=== PATIENT | male | born 1975 | race Caucasian/White ===

== ENCOUNTER 2024-08-30 16:05 | Emergency (ER) | payer OTHER, SELFPAY ==
--- NOTE | ~2024-08-30 | XR_ITS ---
XR hand RT min 3V Ordering provider: Srini Silva MD History: . hand injury . Comparison: None. FINDINGS: BONES: No acute fracture or dislocation. Healing fracture in the midshaft of the fifth metacarpal bon e. JOINT SPACES: Slight Narrowing of the proximal SOFT TISSUES: Normal. IMPRESSION: Healing fracture in the midshaft of the fifth metacarpal bone. Overlying soft tissue swelling is note d in the same area. Reviewed, dictated and finalized at location A. IMPRESSION: Healing fracture in the midshaft of the fifth metacarpal bone. Overlying soft t issue swelling is noted in the same area.
--- NOTE | ~2024-08-30 | XR_ITS ---
XR abdomen obstructive series Ordering provider: Srini Silva MD History: . Constipation . Comparison: None. FINDINGS: BOWEL: Nonobstructive bowel gas pattern. ORGANOMEGALY: None. SIGNIFICANT PATHOLOGIC CALCIFICATIONS: None. OTHER: No free air is seen under the diaphragm. IMPRESSION: NO ACUTE ABDOMINAL FINDINGS. Reviewed, dictated and finalized at location A.
[2024-08-30 16:08] VITALS: BP 154/83; PULSE 92; RESP 18; TEMP 36.6; O2SAT 100
--- OUTSIDE RECORDS SUMMARY | 2024-08-30 16:09 | XMS_ITS | Clinical Summary ---
Author Organization [facility] Address [address] [place] [address] Care Team Providers Care Client Director Name Role Phone Gigi Angel MD Primary Care Provider [phone] Allergies No known active allergies Medications insulin glargine (LANTUS) 100 unit/mL (3 mL) pen for injection Inject 60 Units under the skin every 12 (twelve) hours Inject 60 units with breakfast and at bedtime 30 mL 1 3 Active pen needle, diabetic 32 gauge x 5/32 needle Use as directed twice a day 100 each 3 Active insulin lispro (HumaLOG, ADMELOG) 100 unit/mL pen for injection Inject 25 Units under the skin 3 (three) times a day with meals 30 mL 1 3 Active pen needle, diabetic 32 gauge x 5/32 needle Use as directed 3 times a day. 100 each 3 Active dulaglutide (Trulicity) 0.75 mg/0.5 mL pen injector Inject 0.5 mL (0.75 mg total) under the skin once a week 2 mL 3 Active glucagon (Baqsimi) 3 mg/actuation spray,non-aeros ol One spray into one nostril once as directed by provider for low blood sugar. 1 each 3 Active blood-glucose meter kit Use as directed. 1 kit 3 Active lancets misc Use as directed up to 4 times a day. 100 each 1 3 Active OneTouch Verio test strips strip Use as directed three times a day. 100 each 1 3 Active lurasidone (LATUDA) 40 mg tablet Take 1 tablet (40 mg total) by mouth daily with dinner 30 tablet 3 Active polyethylene glycol (MIRALAX) 17 gram/dose bulk powderIndicatio ns:constipation Take 17 g by mouth daily 510 g 3 Active senna-docusate (PERICOLACE) 8.6-50 mg Take 1 tablet by mouth 2 (two) times a day 60 tablet 3 Active Active Problems Problem Noted Date Diagnosed Date Constipation 12/11/2022 Hypokalemia 12/11/2022 Uncontrolled type 2 DM with hyperosmolar nonketotic hyperglycemia 12/07/2022 Abnormal finding on GI tract imaging 12/06/2022 Abdominal pain 08/09/2009 Surgical History Surgery Date Site/Laterality Comments CT CHOLECYSTECTOMY Cholecystectomy - (Added by TW Conv) Social History Tobacco Use Types Packs/Day Years Used Date Smoking Tobacco: Former Cigarettes 0.5 35 0 12/01/1987 - 11/30/2022 Smokeless Tobacco: Never Tobacco Cessation:Counseling Given: Not Answered Social Connection and Isolation Panel [NHANES] A nswer Date Recorded In a typical week, how many times do you talk on the phone with family, friends, or neighbors? Three times a week 12/07/2022 How often do you get togethe r with friends or relatives? Three times a week 12/07/2022 How often do you attend chur ch or yazdanism services? Never 12/07/2022 Do you belong to any clubs o r organizations such as buddhism groups, unions, fraternal or athletic groups, or school groups? No 12/07/2022 How often do you attend meet ings of the clubs or organizations you belong to? Never 12/07/2022 Are you , , di vorced, , never , or living with a partner? Never 12/07/2022 Overall Financial Resource Strain (CARDIA) Answe r Date Recorded How hard is it for you to pa y for the very basics like food, housing, medical care, and heating? Somewhat hard 12/07/2022 Hunger Vital Sign Answer Date Recorded Within the past 12 months, y ou worried that your food would run out before you got the money to buy more. Sometimes true Within the past 12 months, t he food you bought just didn't last and you didn't have money to get more. Sometimes true PRAPARE - Transportation Answer Date Re corded In the past 12 months, has l ack of transportation kept you from medical appointments or from getting medications? Yes 11/20 In the past 12 months, has l ack of transportation kept you from meetings, work, or from getting things needed for daily living? Yes 12/07/2022 Personal Safety Answer Date Recorded Have you ever been in or are you currently in a harmful physical or emotional relationship or is someone making you feel afraid or unsafe? 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 Gender Identity Not on file Sexual Orientation Not on file Obstetrics History Last Filed Vital Signs Vital Sign Reading Time Taken Comments Blood Pressure 123/83 12/11/2022 7:15 AM CDT Pulse 77 12/11/2022 7:15 AM CDT Temperature 36.9 C (98.4 F) 12/11/2022 7:15 AM CDT Respiratory Rate 18 12/11/2022 7:15 AM CDT Oxygen Saturation 96% 12/11/2022 7:15 AM CDT Inhaled Oxygen Concentration - - Weight 136.1 kg (300 lb 1.6 oz) 12/11/2022 6:00 AM CDT Height 172.7 cm (5' 8 ) 12/07/2022 6:25 AM CDT Body Mass Index 45.63 12/07/2022 6:25 AM CDT Plan of Treatment Health Maintenance Due Date Last Done Comments Albumin Creatinine Ratio, Urine 1975 Depression Screening 1975 Hepatitis C Screening 1975 Dilated Eye Exam 1975 Foot Exam 1975 Lipid Panel 1975 DTaP/Tdap/Td Vaccine (1 - Tdap) 1986 Hepatitis B Screening 1993 Regular Well Visit/Exam 18-64 1993 Pneumococcal vaccine <65 (1 of 2 - PCV) 1994 Hemoglobin A1C 06/09/2023 12/07/2022 eGFR 12/12/2023 12/11/2022, 11/21, 12/09/2022, Additional history exists Influenza Vaccine (#1) 2023 Colon Cancer Screening-Colonoscopy 12/09/20322022 Procedures Procedure Name Priority Date/Time Associated Diagnosis Comments EGFR Routine 12/11/2022 2:48 AM CDT COLONOSCOPY 12/09/2022 12:44 PM CDT HEMOGLOBIN A1C STAT 12/07/2022 1:05 AM CDT from Last 3 Months or Most Recently Relevant to Health Maintenance Results * eGFR (12/11/2022 2:48 AM CDT) eGFR 127 mL/min/1. 73 m2 IMTIAZ DIAZ Comment: Interpretive Data Reference Interval Normal >/= 90 mL/min/1.73m2 Mildly decreased* 60 - 89 mL/min/1.73m2 Mildly to moderately decreased 45 - 59 mL/min/1.73m2 Moderately to severely decreased 30 - 44 mL/min/1.73m2 Severely decreased 15 - 29 mL/min/1.73m2 Kidney Failure < 15 mL/min/1.73m2 *Relative to young adult level Estimated glomerular filtration rate is determined by the 2020 CKD-EPI equation recommended by the National Kidney Foundation (A Unifying Approach to GFR Estimation: Recommendations of the NKF-ASK Task Force on Reassessing the Inclusion of Race in Diagnosing Kidney Disease, JASN 2020). The CKD-EPI equation should not be used for patients with unstable renal function and has not been validated in children and those over 70. Current interpretive data was last reviewed 2021. Testing performed by: [facility], [address] [place] [address]., [id number] Blood 12/11/2022 2:48 AM CDT 12/11/2022 4:14 AM CDT us Mariangel Thompson MD LAB BLOOD ORDERABLES Final Res ult IMTIAZ DIAZ [address] [facility] Department [place] [address] [phone] * COLONOSCOPY (12/09/2022 12:44 PM CDT) Anatomical Region Laterality Modality Other Narrative Procedure Note Roger Flores MD - 12/09/2022 12:44 PM CDT [facility] GI ENDOSCOPY Patient Name: Sharifa Carrillo Procedure Date: 12/09/2022 12:44 PM Date of : 1975 Admit Type: Inpatient Age: 47 Gender: Male Attending MD: Roger Rodriguez M.D. Room: [facility] ENDOSCOPY ROOM 01 Note Status: Finalized Procedure: Colonoscopy Indications: Rectal bleeding, Abnormal CT of the GI tract -rectal wall thickening Referring MD: Providers: Roger Flores M.D. Medicines: Monitored Anesthesia Care Complications: No immediate complications. Estimated Blood Loss: Estimated blood loss: none. Procedure: Pre-Anesthesia Assessment: - Prior to the procedure, a History and Physicalwas performed, and patient medications and allergieswere reviewed. The patient is competent. The risks and benefits of the procedure and the sedation optionsand risks were discussed with the patient. Allquestions were answered and informed consent was obtained. Patient identification and proposed procedure were verified by the physician and the nurse in the procedure room. Prophylactic Antibiotics: Thepatient does not require prophylactic antibiotics. Prior Anticoagulants: The patient has taken noanticoagulant or antiplatelet agents. ASA Grade Assessment: III -A patient with severe systemic disease. Afterreviewing the risks and benefits, the patient was deemed in satisfactory condition to undergo the procedure.The anesthesia plan was to use monitored anesthesiacare (MAC). Immediately prior to administration of medications, the patient was re-assessed foradequacy to receive sedatives. The heart rate, respiratory rate, oxygen saturations, blood pressure, adequacyof pulmonary ventilation, and response to care were monitored throughout the procedure. The physical status of the patient was re-assessed after the procedure. The benefits, risks and alternatives of theprocedure and sedation were discussed and informed consentwas obtained. All questions were answered. Please referto the signed informed consent document in the medical record. The scope was passed under direct vision.The CF-Q180AK colonoscope was introduced through theanus with the intention of advancing to the cecum. The scope was advanced to the sigmoid colon before the procedure was aborted. Medications were given. The colonoscopy was performed without difficulty. The patient tolerated the procedure well. The qualityof the bowel preparation was poor. Findings: A large amount of semi-solid solid stool was found in the rectum, inthe recto-sigmoid colon and in the sigmoid colon, precludingvisualization. A 12 mm polyp was found in the sigmoid colon. The polyp was sessile. Polypectomy was not attempted due to aborting the procedure before completion and inadequate bowel preparation. A few small and large-mouthed diverticula were found in the sigmoid colon. Non-bleeding external and internal hemorrhoids were found. The hemorrhoids were medium-sized. Impression: - Preparation of the colon was poor. - Stool in the rectum, in the recto-sigmoid colonand in the sigmoid colon. - One 12 mm polyp in the sigmoid colon. Resectionnot attempted. - Diverticulosis in the sigmoid colon. - Non-bleeding external and internal hemorrhoids.This is the likely cause of rectal bleeding. No mass or appreciable inflammation in the rectum. - No specimens collected. Recommendation: - [facility]. - Advance diet as tolerated. - Repeat colonoscopy within 3 months because the examination was incomplete and because the bowel preparation was poor. - Return to GI clinic for follow-up. - For future colonoscopy the patient will requirean extended preparation. If there are any questions, please contact the magneto electrician. - Begin stool softeners and increase fiber intaketo relieve hemorrhoids. He has chronic constipation. Roger Flores M.D. Roger Flores M.D. 12/09/2022 1:54:49 PM . Number of Addenda: 0 Note Initiated On: 12/09/2022 12:44 PM Recognized by the [employer] for promoting quality in endoscopy Roger Florse MD ENDOSCOPY P ROCEDURES Final Result * (ABNORMAL) Hemoglobin A1c (12/07/2022 1:05 AM CDT) Hgb A1C 11.5(H) 4.0 - 5.6 % IMTIAZ DIAZ Estimated Average Glucose 283 mg/dL IMTIAZ DIAZ Comment: The ADA recommends reporting an estimated Average Glucose (eAG) with all Hemoglobin A1c results using the equation derived from a study of 507 normal and diabetic adults. Minority populations were underrepresented and children were not included. (Diabetes Care 31:6599-4105, 2008). The eAG is not equivalent to a fasting glucose. Blood 12/07/2022 1:05 AM CDT 12/07/2022 1:09 AM CDT Man DENT LAB BLOOD ORDERABLES Megan hankins Result IMTIAZ DIAZ [address] [facility] Department [place] [address] from Last 3 Months or Most Recently Relevant to Health Maintenance Insurance * Guarantor: Sharifa Carrillo Account Type Relation to Patient Date of Phone Billing Address Personal/Family Self [address] [place] [phone] [facility] Advance Directives For more information, please contact: [phone] * Full Code (Latest Code Status on File) Date Activated Date Inactivated Comments 12/09/2022 9:53 AM 12/11/2022 5:47 PM * Full Code Date Activated Date Inactivated Comments 12/07/2022 7:36 AM 12/09/2022 9:53 AM Care Teams Client Director Relationship Specialty Start Date End Date Gigi Angel MD [address] [place], [place] [address] PCP - General Gastroenterology 12/06/22
--- OUTSIDE RECORDS SUMMARY | 2024-08-30 16:09 | XMS_ITS | Referral Summary ---
Author Organization [facility] Address [address] [place] [address] Care Team Providers Care Assurance Senior Manager Insurance Name Role Phone Gigi Angel MD Primary Care Provider [phone] Allergies No known active allergies Medications insulin [...] GI tract imaging 12/06/2022 Abdominal pain 08/09/2009 Social History Tobacco Use Types Packs/Day Years [...] often do you attend chur ch or anglican services? 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 Testing performed by: [facility], [address] [place] [address]., [id number] Blood 12/11/2022 2:48 AM CDT 12/11/2022 4:14 AM CDT us Mariangel Thompson MD LAB BLOOD ORDERABLES Final Res [facility] [address] [facility] Department [place] [address] * COLONOSCOPY (12/09/2022 12:44 PM CDT) Anatomical Region Laterality Modality Other Narrative Procedure Note Roger Flores MD - 12/09/2022 12:44 PM CDT [facility] GI ENDOSCOPY Patient Name: Sharifa Carrillo Procedure Date: 12/09/2022 12:44 PM Date of : 1975 Admit Type: Inpatient Age: 47 Gender: Male Attending MD: Roger Rodriguez M.D. Room: [facility] ENDOSCOPY ROOM 01 Note Status: Finalized Procedure: [...] there are any questions, please contact the recording studio internship. - Begin stool softeners and increase fiber intaketo relieve hemorrhoids. He has chronic constipation. Roger Flores M.D. Roger Flores M.D. 12/09/2022 1:54:49 PM . Number of Addenda: 0 Note Initiated On: 12/09/2022 12:44 PM Recognized by the [employer] for promoting quality in endoscopy Roger Flores MD ENDOSCOPY P ROCEDURES Final Result * [...] and children were not included. (Diabetes Care 31:2731-0408, 2008). The eAG is not equivalent to a fasting glucose. Blood 12/07/2022 1:05 AM CDT 12/07/2022 1:09 AM CDT Man DENT LAB BLOOD ORDERABLES Megan l Result IMTIAZ [address] [facility] Department [place] [address] from Last 3 Months or Most Recently Relevant to Health Maintenance Insurance [facility] Advance Directives For more information, please contact: [phone] * Full Code (Latest Code Status on File) Date Activated Date Inactivated Comments 12/09/2022 9:53 AM 12/11/2022 5:47 PM * Full Code Date Activated Date Inactivated Comments 12/07/2022 7:36 AM 12/09/2022 9:53 AM Care Teams Assurance Senior Manager Insurance Relationship Specialty Start Date End Date Gigi Angel MD [address] [place] [address] PCP - General Gastroenterology 12/06/22
--- OUTSIDE RECORDS SUMMARY | 2024-08-30 16:09 | XMS_ITS | Data Portability ---
Author Organization [facility] Benjie SMITH Address [address] [place] [address] Care Team Providers Care Geomatics Professor Name Role Phone CATY ANGEL Primary Care Provider [phone] Assessment No assessment recorded. Plan of Treatment Reminders Order Date Submit Date Provider Last Modified By Organization Details Last Modified Time Details Appointments None recorded. Lab CMP, serum or plasma 2022 023 MIKE GENO, [address] [place] [address], [place] [address], [place], [address], 06:17:36 microalbu min, urine 2022 023 DALLAS GENO, [address] [place] [address], [place] [address], [place], [address], 11:19:42 lipid panel, serum 2022 023 DALLAS ANA, [address] [place] [address], [place] [address], [place], [address], 06:17:36 drug screen, 14 drugs (detectim ed), urine 2022 023 MIKECELSO LORA, [address] [place] [address], [facility] [address], [place], [address], 11:19:43 PSA, total, serum or plasma 2022 023 [facility], [address], [address], [place], [address], 3 11:19:43 vitamin B12 + folate, serum or blood 2020 MIKE [facility], [address], [address], [place], [address], 15:58:32 vitamin D, 25-hydrox y, total, serum 2020 MIKE [facility], [address], [address], [place], [address], 15:57:24 drug screen, urine 2020 MIKE [facility], [address], [place], [address], 13:08:21 lipid panel, serum 2020 [facility], [address], [place], [address], 16:00:13 CMP, serum or plasma 2020 MIKE [facility], [address], [place], [address], 15:59:57 CBC 2020 MIKE [facility], [address], [address], [place], [address], 16:00:12 Referral psychiatr ist referral 2020 wander Garibay [facility], [address] [place], [address], 08:03:43 psychiatr ist referral 2019 020 [email or web address] Erica Garibay [facility], [address] [place], [address], 08:33:57 Procedures None recorded. Surgeries None recorded. Imaging XR, hand [address] ([facility]), [address] [place], [address], 16:00:08 Medication Orders Humalog KwikPen (U-100) Insulin 100 unit/mL subcutane ous 2022 023 [facility], [address] [place], [address], 3 09:59:17 Lantus Solostar U-100 Insulin 100 unit/mL (3 mL) subcutane ous pen 2022 023 [facility], [address] [place], [address], 3 09:59:17 Trulicity 0.75 mg/0.5 mL subcutane ous pen injector 2022 023 [facility], [address] [place], [address], 3 09:59:19 losartan 50 mg tablet 2022 023 [facility], [address] [place], [address], 3 17:18:40 sertralin e 25 mg tablet 2022 023 [facility], [address] [place], [address], 3 17:18:42 lidocaine 5 % topical patch 2022 023 [facility], [address] [place], [address], 3 17:18:42 gabapenti n 300 mg capsule 2022 023 [facility], [address] [place], [address], 17:18:41 polyethyl phyllis glycol 3350 17 gram/dose oral powder 2020 [facility], [address] [place] [address], [id number], 1 16:06:05 hydrocodo ne 10 mg-acetam inophen 325 mg tablet 2020 [facility], [address] [place] [address], [id number], 3 16:36:34 hydrocodo ne 10 mg-acetam inophen 325 mg tablet 2020 [facility], [address] [place] [address], [address], 3 16:36:34 sertralin e 100 mg tablet 2020 021 [facility], [address] [place], [address], 3 16:36:55 hydrocodo ne 10 mg-acetam inophen 325 mg tablet 2019 020 [facility], [facility] [place], [address], 3 16:36:34 gabapenti n 100 mg capsule 2019 020 [facility], [facility] [place], [address], 1 10:15:37 venlafaxi ne 37.5 mg tablet 2019 020 [email or web address] [facility], [address] [facility], [place], [address], 0 14:00:23 Patient TargetsNo targets recorded. Patient Instructions Encounter Date Encounter Id Patient Instructions Last Modified By Organization Details Last Modified Time 01/30/2023 [id number] deciding about using medicines to quit smoking [email or web address] Not available 01/30/2023 17:18:30 Quitting Tobacco : Care Instructions [email or web address] Not available 01/30/2023 17:18:30 learning about type 2 diabetes [email or web address] Not available 01/30/2023 17:18:30 type 2 diabetes: care instructions Not available 01/30/2023 17:18:30 anxiety disorder : care instructions [email or web address] Not available 01/30/2023 17:18:30 learning about anxiety disorders [email or web address] Not available 01/30/2023 17:18:31 Reason for Referral Psychiatrist Referral for An xiety disorder Mood disorder unresponsive to multiple meds. Referring Physician: Caty Angel, Internal Medicine, Encounter Date: 11/11/2019 Psychiatrist Referral for An xiety disorder Anxiety worsening. No benefit from several previous meds Referring Physician: Caty Angel Internal Medicine, Encounter Date: 05/16/2020 Results Created Date Observation Date Name Description Value Unit Range Abnormal Flag Note LastModifiedBy Organization Detail LastModifiedTime 08/04/1908/06/2019 drug scree n, urine summary report (summary) FINAL ===== ===== ===== ===== ===== ===== ===== ===== ===== ===== ===== ===== ===== === TOXAS SURE COMP DRUG RONA SIS,U R ===== ===== ===== ===== ===== ===== ===== ===== ===== ===== ===== ===== ===== === Test Resul t Flag Units NO DRUGS DETEC ODELL. ===== ===== ===== ===== ===== ===== ===== ===== ===== ===== ===== ===== ===== === Test Resul t Flag Units Ref Range Creat inine 416 mg/dL >=20 ===== ===== ===== ===== ===== ===== ===== ===== ===== ===== ===== ===== ===== === Decla red Medic ation s: Medic ation list was not provi ded. ===== ===== ===== ===== ===== ===== ===== ===== ===== ===== ===== ===== ===== === For clini beth consu ltati on, pleas e call . ===== ===== ===== ===== ===== ===== ===== ===== ===== ===== ===== ===== ===== === Not Available [facility] [address] [facility] [address], [place], [address], 08/06/2019 17:07:50 08/04/19 20 08/06/2019 drug scree n, urine pdf . Not Available [facility] [address] [facility] [address], [place], [address], 08/06/2019 17:07:50 01/24/20 21 01/28/2021 COMPL IANCE DRUG RONA SIS, UR summary report (summary) FINAL ===== ===== ===== ===== ===== ===== ===== ===== ===== ===== ===== ===== ===== === TOXAS SURE COMP DRUG RONA SIS,U R ===== ===== ===== ===== ===== ===== ===== ===== ===== ===== ===== ===== ===== === Test Resul t Flag Units Drug Prese nt Metha mphet amine 1004 ng/mg creat Amphe tamin e 499 ng/mg creat Sourc es of metha mphet amine inclu de illic it sourc es, as a sched uled presc ripti on medic ation , as a metab olite of some presc ripti on drugs , or use of an l-met hamph etami ne inhal er. Amphe tamin e is an expec odell metab olite of metha mphet amine . Amphe tamin e is also avail able as a sched ule II presc ripti on drug. Lamot rigin e PRESE NT ===== ===== ===== ===== ===== ===== ===== ===== ===== ===== ===== ===== ===== === Test Resul t Flag Units Ref Range Creat inine 97 mg/dL >=20 ===== ===== ===== ===== ===== ===== ===== ===== ===== ===== ===== ===== ===== === Decla red Medic ation s: Medic ation list was not provi ded. ===== ===== ===== ===== ===== ===== ===== ===== ===== ===== ===== ===== ===== === For clini beth consu ltati on, pleas e call [phone]. ===== ===== ===== ===== ===== ===== ===== ===== ===== ===== ===== ===== ===== === Not Available [facility] [address] [facility], [place], [address], 01/28/2021 13:08:21 01/24/2001/28/2021 COMPL IANCE DRUG RONA SIS, UR pdf . Not Available [facility] [address] [facility], [place], [address], 01/28/2021 13:08:21 02/01/2001/31/2023 LIPID PANEL cholesterol, total 189 mg/dL 100-19 9 Not Available [facility] [address], [address], 02/01/2023 06:17:36 02/01/2001/31/2023 LIPID PANEL triglyceride s 300 mg/dL 0-149 above high normal Not Available [facility] [address], [address], 02/01/2023 06:17:36 02/01/2001/31/2023 LIPID PANEL HDL cholesterol 45 mg/dL 40-999 Not Available [facility] [id number] [place] [address], [address], 02/01/2023 06:17:36 02/01/20 23 01/31/2023 LIPID PANEL VLDL cholesterol beth 60 mg/dL 5-40 above high normal Not Available [facility] [address], [address], 02/01/2023 06:17:36 10/12/20 23 01/31/2023 LIPID PANEL LDL chol calc ([facility]) 129 mg/dL 0-99 above high normal Not Available [address], [address], 02/01/2023 06:17:36 02/01/20 23 01/31/2023 COMP. METAB OLIC PANEL (14) glucose 132 mg/dL 70-99 above high normal Not Available [address], [address], 02/01/2023 06:17:36 02/01/20 23 01/31/2023 COMP. METAB OLIC PANEL (14) BUN 8 mg/dL 6-24 Not Available [facility] & [address], [address], 02/01/2023 06:17:36 02/01/20 23 01/31/2023 COMP. METAB OLIC PANEL (14) creatinine 0.66 mg/dL 0.76-1 .27 below low normal Not Available [address], [address], 02/01/2023 06:17:36 02/01/20 23 01/31/2023 COMP. METAB OLIC PANEL (14) eGFR 116 >=60 Units for eGFR value s are mL/mi n/1.7 3 The eGFR Calcu latio n has not been valid ated for patie nts under the age of 18. If test resul ts are displ ayed for a patie nt under the age of 18, disre genoveva that value . Not Available [address], [address], 02/01/2023 06:17:36 02/01/20 23 01/31/2023 COMP. METAB OLIC PANEL (14) BUN/creatini ne ratio 13 9-20 Not Available [address], [address], 02/01/2023 06:17:36 02/01/20 23 01/31/2023 COMP. METAB OLIC PANEL (14) sodium 138 mmol/ L 134-14 4 Not Available [address], [address], 02/01/2023 06:17:36 02/01/2001/31/2023 COMP. METAB OLIC PANEL (14) potassium 4.5 mmol/ L 3.5-5. 2 Not Available [address], [address], 02/01/2023 06:17:36 02/01/2001/31/2023 COMP. METAB OLIC PANEL (14) chloride 105 mmol/ L 96-106 Not Available [address], [address], 02/01/2023 06:17:36 02/01/2001/31/2023 COMP. METAB OLIC PANEL (14) carbon dioxide, total 22 mmol/ L 20-29 Not Available [address], [address], 02/01/2023 06:17:36 02/01/20 23 01/31/2023 COMP. METAB OLIC PANEL (14) calcium 9.6 mg/dL 8.7-10 .2 Not Available [address], [address], 02/01/2023 06:17:36 02/01/2001/31/2023 COMP. METAB OLIC PANEL (14) protein, total 6.9 g/dL 6.0-8. 5 Not Available [address], [address], 02/01/2023 06:17:36 02/01/20 23 01/31/2023 COMP. METAB OLIC PANEL (14) albumin 4.2 g/dL 4.1-5. 1 Not Available [address], [address], 02/01/2023 06:17:36 02/01/20 23 01/31/2023 COMP. METAB OLIC PANEL (14) globulin, total 2.7 g/dL 1.5-4. 5 Not Available [address], [address], 02/01/2023 06:17:36 02/01/20 23 01/31/2023 COMP. METAB OLIC PANEL (14) A/G ratio 1.5 1.2-2. 2 Not Available [address], [address], 02/01/2023 06:17:36 02/01/20 23 01/31/2023 COMP. METAB OLIC PANEL (14) bilirubin, total 0.3 mg/dL 0.0-1. 2 Not Available [address], [address], 02/01/2023 06:17:36 02/01/20 23 01/31/2023 COMP. METAB OLIC PANEL (14) alkaline phosphatase 95 IU/L 44-121 Not Available [address], [address], 02/01/2023 06:17:36 02/01/20 23 01/31/2023 COMP. METAB OLIC PANEL (14) AST (SGOT) 27 IU/L 0-40 Not Available [address], [address], 02/01/2023 06:17:36 02/01/20 23 01/31/2023 COMP. METAB OLIC PANEL (14) ALT (SGPT) 25 IU/L 0-44 Not Available [address] [place], [address], 02/01/2023 06:17:36 02/01/2002/01/2023 ALBUM INERIN M URINE albumin, urine 5.4 ug/mL notest ab. Not Available [facility] ([facility]) [address] [facility], [place], [address], 02/08/2023 11:19:42 02/01/2002/08/2023 COMPL IANCE DRUG RONA SIS, UR summary report (summary) FINAL ===== ===== ===== ===== ===== ===== ===== ===== ===== ===== ===== ===== ===== === TOXAS SURE COMP DRUG RONA SIS,U R ===== ===== ===== ===== ===== ===== ===== ===== ===== ===== ===== ===== ===== === Test Resul t Flag Units Drug Prese nt Metha mphet amine 83 ng/mg creat Amphe tamin e 64 ng/mg creat Sourc es of metha mphet amine inclu de illic it sourc es, as a sched uled presc ripti on medic ation , as a metab olite of some presc ripti on drugs , or use of an l-met hamph etami ne inhal er. Amphe tamin e is an expec odell metab olite of metha mphet amine . Amphe tamin e is also avail able as a sched ule II presc ripti on drug. Trama dol 364 ng/mg creat O-Miguel methy ltram adol 708 ng/mg creat Sourc e of trama dol is a presc ripti on medic ation . O-miguel methy ltram adol is an expec odell metab olite of trama dol. Gabap entin PRESE NT Sertr ronaldo PRESE NT Desme thyls ertra line PRESE NT Desme thyls ertra line is an expec odell metab olite of sertr ronaldo . Luras idone PRESE NT ===== ===== ===== ===== ===== ===== ===== ===== ===== ===== ===== ===== ===== === Test Resul t Flag Units Ref Range Creat inine 146 mg/dL >=20 ===== ===== ===== ===== ===== ===== ===== ===== ===== ===== ===== ===== ===== === Decla red Medic ation s: Medic ation list was not provi ded. ===== ===== ===== ===== ===== ===== ===== ===== ===== ===== ===== ===== ===== === For clini beth consu ltati on, pleas e call . ===== ===== ===== ===== ===== ===== ===== ===== ===== ===== ===== ===== ===== === Not Available [facility] ([facility]) [address] [facility], [place], [address], 02/08/2023 11:19:43 02/01/2002/08/2023 COMPL IANCE DRUG RONA SIS, UR pdf . Not Available [facility] ([facility]) [address] [facility], [place], [address], 02/08/2023 11:19:43 02/01/2002/01/2023 PROST ATE-S PECIF IC AG prostate specific Ag 1.3 NG/mL 0.0-4. 0 Calvin ECLIA metho dolog y. Accor ely to the Ameri can Urolo gical Assoc iatio n, Serum PSA shoul d decre ase and remai n at undet ectab le level s after radic al prost atect maritza. The AUA defin es bioch emica l recur rence as an initi al PSA value 0.2 ng/mL or great er follo wed by a subse quent confi rmato ry PSA value 0.2 ng/mL or great er. Value s obtai lisa with diffe rent assay metho ds or kits canno t be used inter burris eably . Resul ts canno t be inter prete d as absol jerrica evide nce of the prese nce or absen ce of thais downs se. Not Available [facility] ([facility]) [address] [facility], [place], [address], 02/08/2023 11:19:43 02/01/20 23 01/31/2023 DIABE CLAIRE PATIE NT EDUCA TION pdf . Not Available [facility] [address] [place] [address], [address], 02/01/2023 06:17:37 12/14/19 20 12/14/2019 CT, abdom en + pelvi s, w/o contr ast No observ ation record ed. [email or web address] [facility] (Imaging) [address] [place], [address], 12/22/2019 15:51:06 Result Notes None recorded. Problems Name Problem SNOMED Code Status Onset Date Resolution Date Notes Provider Name and Address Organization Details Recorded Time History of drug abuse 683927119 Active 2017 UDS positive for amphetami marcelo on 12/28/17 Liz Dillard PA-C Attn: Accounting ,[address] [facility], [place], [address] , [place] [facility] 8 10:59:13 Body mass index 40+ - severely obese 830280121 Active 2017 Liz Dillard PA-C Attn: Accounting ,[address] [facility], [place], [address] , [place] [facility] 8 10:59:36 Tobacco dependenc e syndrome 00176945 Active 2017 Liz Dillard PA-C Attn: Accounting ,[address] [facility], [place], [address] , [place] [facility] 8 10:59:53 Pain in right hand 74665226543 9109 Active 2020 4th and sth fingers Caty Angel MD Attn: Accounting ,[address] [facility], [place], [address] , [place] - [facility] 1 15:49:48 Anxiety 22552917 Active 2020 Caty Angel MD Attn: Accounting ,[address] [facility], [place], [address] , [place] - [facility] 1 15:50:04 Body mass index 30+ - obesity 316604813 Active 2020 Caty Angel MD Attn: Accounting ,[address] [place], [address] , [place] - [facility] 1 15:52:37 Constipat ion 45864745 Active Caty Angel MD Attn: Accounting ,[address] [place], [address] , [place] - [facility] 6 17:40:19 Type 2 diabetes mellitus 31329815 Active 2022 Caty Angel MD Attn: Accounting ,[address] [place], [address] , [place] - [facility] 3 17:07:57 Elevated blood-pre ssure reading without diagnosis of hypertens ion 827521188 Active 2022 Caty Angel MD Attn: Accounting ,[address] [place], [address] , [place] - [facility] 3 17:08:28 Screening for malignant neoplasm of prostate Active 2022 Caty Angel MD Attn: Accounting ,[address] [facility], [place], [address] , [facility] - SI 3 17:12:52 Hypertrig lyceridem ia 685604321 Active 2022 Caty Angel MD Attn: Accounting ,[address] [facility], [place], [address] , [facility] - [facility] 3 14:15:29 Chronic back pain 019598673 Active Caty Angel MD Attn: Accounting ,[address] [facility], [place], [address] , [facility] - [facility] 6 17:56:53 Upper back injury 317590962 Active Caty Angel MD Attn: Accounting ,[address] [place], [address] , [facility] - [facility] 5 16:57:54 Anxiety disorder 903711923 Active Caty Angel MD Attn: Accounting ,[address] [facility], [place], [address] , [facility] - [facility] 6 17:56:53 Electroca rdiogram abnormal 686211545 Active Caty Angel MD Attn: Accounting ,[address] [facility], [place], [address] , [facility] - [facility] 5 16:57:54 Medicatio n monitorin g Active 2015 Caty Angel MD Attn: Accounting ,[address] [facility], [place], [address] , [facility] - [facility] 6 11:56:51 Problem Notes None recorded. Procedures Surgical History Date Name Laterality Status Provider Name and Address Organization Details Recorded Time Removal of gallbladder completed Man Albrecht [place] [facility] 06/28/2014 10:26:36 Imaging Results Imaging Date Name Status LastModified by [facility] Details LastModified Time 12/14/2019 CT, abdomen + pelvis, w/o contrast completed [email or web address] ([facility]) [address] [place], [address], 12/22/2019 15:51:06 Procedure Notes None recorded. Medical Equipment None Reported. Allergies No known drug allergies Medications Name Sig Start Date Stop Date Status Note LastModified by Organization Details LastModified Time Prescript ion - Renewal 03/27 completed Script for refill on Hydrocod one-Acet aminophe n. Not Available Not Available Not Available losartan 50 mg tablet Take 1 tablet by mouth once daily active Not Available Not Available No t Available carisopro dol 350 mg tablet TAKE 1 TABLET BY MOUTH EVERY 8 HOURS NEEDED 11/10 completed Denied by insuranc e Not Available Not Available Not Available cyclobenz aprine 10 mg tablet Take 1 tablet 3 times a day by oral route as needed. 05/16 completed Not Available Not Available Not Available nystatin 100,000 unit/mL oral suspensio n 03/27 completed Not Available Not Available Not Available Colace 100 mg capsule Take 2 capsules every day by oral route. 2014 active Not Available Not Available Not Avai lable venlafaxi ne ER 37.5 mg capsule,e xtended release 24 hr Take 1 capsule every day by oral route. 08/10 completed Not Available Not Available Not Available atorvasta tin 20 mg tablet TAKE 1 TABLET BY MOUTH ONCE DAILY IN THE EVENING active Not Available Not Available No t Available ibuprofen 800 mg tablet Take 1 tablet 3 times a day by oral route with meals. 07/21 completed Not Available Not Available Not Available clonazepa m 0.5 mg tablet Take 1 tablet twice a day by oral route for 30 days. active Not Available Not Available No t Available sertralin e 100 mg tablet Take 1 tablet every day by oral route. 01/30 completed Not Available Not Available Not Available olanzapin e 5 mg tablet TAKE 1 TABLET BY MOUTH TWICE DAILY 01/30 completed Not Available Not Available Not Available clonazepa m 1 mg tablet Take 1 tablet twice a day by oral route. active Not Available Not Available No t Available acetamino phen 300 mg-codein e 30 mg tablet Take 1 tablet 3 times a day by oral route as needed. 09/06 completed Not Available Not Available Not Available hydrocodo ne 10 mg-acetam inophen 325 mg tablet TAKE 1 TABLET BY MOUTH THREE TIMES DAILY NEEDED 01/30 completed Not Available Not Available Not Available lamotrigi ne 25 mg tablet TAKE 1 TABLET BY MOUTH ONCE DAILY 01/30 completed Not Available Not Available Not Available potassium chloride ER 20 mEq tablet,ex tended release(p art/cryst ) TAKE 1 TABLET BY MOUTH ONCE DAILY active Not Available Not Available No t Available trazodone 100 mg tablet 07/14 completed Not Available Not Available Not Available baclofen 10 mg tablet Take 1 tablet 3 times a day by oral route as needed. 08/02 completed Not Available Not Available Not Available hydrocodo ne 7.5 mg-acetam inophen 325 mg tablet Take 1 tablet 3 times a day by oral route. 08/10 completed Not Available Not Available Not Available venlafaxi ne 37.5 mg tablet Take 1 tablet twice a day by oral route. 11/10 completed Not Available Not Available Not Available buspirone 10 mg tablet Take 1 tablet twice a day by oral route. 05/16 completed Not Available Not Available Not Available lidocaine 5 % topical patch APPLY 1 TOPICALL Y ONCE DAILY FOR UP TO 12 HOURS active Not Available Not Available No t Available clonazepa m 2 mg tablet Take 1 tablet twice a day by oral route as needed. 03/27 completed Not Available Not Available Not Available gabapenti n 300 mg capsule TAKE 1 CAPSULE BY MOUTH THREE TIMES DAILY active Not Available Not Available No t Available sertralin e 25 mg tablet TAKE 1 TABLET BY MOUTH ONCE DAILY active Not Available Not Available No t Available olanzapin e 15 mg tablet 07/14 completed Not Available Not Available Not Available gabapenti n 100 mg capsule Take 1 capsule 3 times a day by oral route. 05/16 completed Not Available Not Available Not Available polyethyl phyllis glycol 3350 17 gram/dose oral powder MIX 1 CAPFUL IN 8 OZ OF WATER AND DRINK ONCE DAILY active Not Available Not Available No t Available sertralin e 50 mg tablet 05/16 completed Not Available Not Available Not Available naproxen 500 mg tablet TAKE ONE TABLET BY MOUTH TWICE A DAY WITH MEALS FOR BACK PAIN 03/27 completed Not Available Not Available Not Available insulin lispro (U-100) 100 unit/mL subcutane ous pen INJECT 25 UNITS SUBCUTAN EOUSLY THREE TIMES DAILY active Not Available Not Available No t Available escitalop rafi 10 mg tablet Take 1 tablet every day by oral route. 08/02 completed Not Available Not Available Not Available Lantus Solostar U-100 Insulin 100 unit/mL (3 mL) subcutane ous pen INJECT 60 UNITS SUBCUTAN EOUSLY TWICE DAILY active Not Available Not Available No t Available Acetamino phen Pain Relief 500 mg tablet Take 2 tablets every 8 hours by oral route as needed. 03/27 completed Not Available Not Available Not Available lurasidon e 40 mg tablet TAKE 1 TABLET BY MOUTH ONCE DAILY WITH SUPPER active Not Available Not Available No t Available OneTouch Verio test strips Use to check blood sugar three times daily 2023 active Not Available Not Available Not Avai lable Trulicity 0.75 mg/0.5 mL subcutane ous pen injector INJECT 1/2 (ONE-LELA F) ML SUBCUTAN EOUSLY ONCE A WEEK active Not Available Not Available No t Available OneTouch Verio Flex Meter USE DIRECTED active Not Available Not Available No t Available TRUEplus Pen Needle 32 gauge x 5/32 USE 1 THREE TIMES DAILY DIRECTED active Not Available Not Available No t Available OneTouch Delica Plus Lancet 33 gauge active Not Available Not Available Not Available Baqsimi 3 mg/actuat ion nasal spray ONE SPRAY INTO ONE NOSTRIL ONCE DIRECTED BY FOR LOW BLOOD SUGAR active Not Available Not Available No t Available Semglee (insulin glargine- yfgn) Pen 100 unit/mL (3 mL) subcutane ous Inject by subcutan eous route for 25 days. active Not Available Not Available No t Available Vitals Date Recorded Body height Provider Name an d Address Organization Details Last Updated DateTime 05/16/2020 177.8 cm Nati Robert [place] [facility] 1 10:15:17 Date Recorded Body height Body mass index (BMI) Body weight Heart rate Body temperature Oxygen saturation Oxygen saturation in Arterial blood by Pulse oximetry Systolic blood pressure Diastolic blood pressure Provider Name and Address Organization Details Last Updated DateTime 1 177.8 cm 39.6 kg/m2 154192. 49 g 83 /min 98.3 [degF] 98 % 98 % 128 mm[Hg] 88 mm[Hg] Nati Robert MA [facility] 15:29:59 Date Recorded Body height Body mass index (BMI) Body weight Body temperature Heart rate Oxygen saturation Oxygen saturation in Arterial blood by Pulse oximetry Systolic blood pressure Diastolic blood pressure Provider Name and Address Organization Details Last Updated DateTime 3 177.8 cm 43.6 kg/m2 915267. 08 g 98.1 [degF] 76 /min 98 % 98 % 150 mm[Hg] 100 mm[Hg] Nati Robert MA [facility] 3 16:36:05 Social History Question Answer Notes LastModified by Organizat ion Details LastModified Time Tobacco Smoking Status Current Every Day Smoker Nati Robert MA [facility], [facility] 01/23/2021 15:30:43 What Is Your Level Of Alcohol Consumption? None Information not available 06/28/2014 What Is Your Level Of Caffeine Consumption? Moderate Information not available 06/28/2014 What Was The Date Of Your Most Recent Tobacco Screening? 01/30/2023 Information not available 01/30/2023 At What Age Did You Start Smoking Tobacco? 14 Information not available 06/28/2014 How Much Tobacco Do You Smoke? 0.5 PPD Information not available 01/23/2021 Has Tobacco Cessation Counseling Been Provided? Yes Information not available 01/30/2023 On What Date Was Tobacco Cessation Counseling Provided? 01/30/2023 Information not available 01/30/2023 How Many Years Have You Smoked Tobacco? 21 Information not available 06/28/2014 Do You Or Have You Ever Used Any Other Forms Of Tobacco Or Nicotine? No Information not available 01/30/2023 Sex: Unknown Functional Status None recorded. Mental Status None recorded. Family History Relationship Description Onset Age of this Age Resolved Age Notes LastModified by Organization Details LastModified Time Father Hypertensive disorder [email or web address] Not available 04/22 15:50:59 Medical History Condition Response Anxiety Disorder Y Muscle, Joint, or Bone Problems Y Past Encounters Encounter ID Performer Location Encounter Start Date Encounter Closed Date Diagnosis/Indication Diagnosis SNOMED-CT Code Diagnosis ICD10 Code Diagnosis Note [id number] MD Jessie Barajas (Adult Med) [address] [place] [address] [id number] 0 03/30/2014 10:06:22 03/30/2014 11:27:28 Anxiety disorder 707583301 [id number] MD Jessie Barajas (Adult Med) [address] [place] [address] [id number] 0 06/28/2014 10:13:21 06/28/2014 11:34:07 Chronic back pain 041657844 Anxiety disorder 821582405 Constipation 46473785 [id number] MD Jessie Barajas (Adult Med) [address] [place] [address] [id number] 0 08/10/2014 11:05:13 08/10/2014 12:42:56 Chronic back pain 481249657 [id number] MD Jessie Barajas (Adult Med) [address] [place] [address] [id number] 0 09/06/2014 10:06:41 09/06/2014 17:38:25 Chronic back pain 284286196 Upper back injury 174081331 [id number] MD Jessie Barajas (Adult Med) [address] [place] [address] [id number] 0 12/28/2014 16:29:51 12/29/2014 10:53:01 Electrocardiogram abnormal 100879664 Chronic back pain 796723499 Upper back injury 299677826 [id number] MD Jessie Barajas (Adult Med) [address] [place] [address] [id number] 0 05/10/2015 14:44:49 05/10/2015 17:44:41 Chronic back pain 548397339 R52 Constipation 39125723 K5 9.00 Anxiety disorder F41.9 [id number] MD Jessie Barajas (Adult Med) [address] [place] [address] [id number] 0 08/31/2015 16:35:18 08/31/2015 17:38:43 Chronic back pain 386606261 R52 DC carisoprod ol. Increase hydrocodon e Anxiety disorder F41.9 [id number] MD Jessie Barajas (Adult Med) [address] [place] [address] [id number] 0 01/10/2016 16:38:24 01/11/2016 12:30:54 Chronic back pain 614607378 R52 DC carisoprod ol. Increase hydrocodon e Anxiety disorder F41.9 [id number] MD Jessie Barajas (Adult Med) [address] [place] [address] [id number] 0 04/10/2016 11:08:18 04/10/2016 12:00:54 Chronic back pain 802734110 R52 Increased severity and change in pattern of pain Anxiety disorder F41.9 Medication monitoring 39 9897085 Z51.81 [id number] MD Jessie Barajas (Adult Med) [address] [place] [address] [id number] 0 09/10/2016 16:26:06 09/10/2016 17:19:21 Chronic back pain 070858747 R52 Increased severity and change in pattern of pain Anxiety disorder F41.9 [id number] MD Jessie Barajas (Adult Med) [address] [place] [address] [id number] 0 06/13/2017 14:42:22 06/13/2017 16:04:33 Chronic back pain 991580524 R52 Increased severity and change in pattern of pain Constipation 95286341 K5 9.00 Anxiety disorder 06 F41.9 Medication monitoring 39 3969454 Z51.81 [id number] MD Jessie Matta (Adult Med) [address] [place] [address] [id number] 0 03/27/2018 09:23:20 03/28/2018 09:48:50 Hernia of anterior abdominal wall 799770560 K43.9 exam limited d/t body habitus - will begin with abdominal CT and then refer to general surgery History of drug abuse 37 5082419 F19.21 UDS positive for amphetamin es on 12/28/17 Body mass index 40+ - severely obese 449460936 Z68.41 Tobacco de pendence syndrome 64512317 F17.194 [id number] MD Jessie Barajas (Adult Med) [address] [place] [address] [id number] 0 07/15/2019 11:52:13 07/15/2019 15:42:46 Anxiety disorder 902630972 F41.9 Chronic back pain 423784 002 R52 Increased severity and change in pattern of pain [id number] MD Jessie Barajas (Adult Med) [address] [place] [address] [id number] 0 08/03/2019 15:49:01 08/13/2019 17:05:07 Anxiety disorder 699784985 F41.9 Chronic back pain 725436 002 R52 Increased severity and change in pattern of pain. Restart hydrocodon e pending UDS results(pt to come in AM for UDS) Medication monitoring 39 6548221 Z51.81 [id number] MD Jessie Barajas (Adult Med) [address] [place] [address] [id number] 0 08/11/2019 15:54:12 08/13/2019 18:18:18 Anxiety disorder 756783475 F41.9 Chronic back pain 119497 002 R52 Increased severity and change in pattern of pain. Restart hydrocodon e pending UDS results(pt to come in AM for UDS) [id number] MD Jessie Barajas (Adult Med) [address] [place] [address] [id number] 0 11/11/2019 10:41:43 11/12/2019 15:58:34 Anxiety disorder 075044051 F41.9 Chronic back pain 584917 002 R52 [id number] MD Jessie Barajas (Adult Med) [address] [place] [address] [id number] 0 05/16/2020 10:14:29 05/17/2020 10:25:00 Chronic back pain 625092311 R52 Anxiety disorder 4085499 06 F41.9 [id number] MD Jessie Barajas (Adult Med) [address] [place] [address] [id number] 0 01/23/2021 15:07:14 01/25/2021 09:13:54 Chronic back pain 714646224 R52 Tobacco de pendence syndrome 89027271 F17.200 Medication monitoring 39 4812415 Z51.81 Body mass index 30+ - obesity 264109792 Z68.39 Pain in right hand 42953 20553 06490 M79.641 Constipation 24286929 K5 9.00 [id number] Caty Angel MD [facility] (Adult Med) [address] [place] [address] 01/30/2023 16:03:42 02/04/2023 16:00:00 Type 2 diabetes mellitus 15433940 E11.9 Elevated blood-pressure reading without diagnosis of hypertension 466085166 R03.0 Tobacco de pendence syndrome 56706211 F17.200 History of drug abuse 37 9195441 F19.21 Chronic back pain 646952 002 R52 Screening for malignant neoplasm of prostate 589585743 Z12.5 Medication monitoring 39 7628146 Z51.81 Anxiety disorder 2703687 06 F41.9 Health Concerns Section Related Observation LastModified by Organization Detai ls LastModified Time None Recorded Concern Status LastModified by Organization Details LastModified Time None Recorded Advance Directives Directive None Recorded Payers Encounter Date Sequence Insurance Name Policy Number Policy Briggs Covered Member ID Briggs Member ID Guarantor Name 08/11/[address] [facility] PRIOR TO 10/20/2020 (MEDICAID REPLACEMENT - HMO) Sharifa Carrillo [id number] 11/11/[address] [facility] PRIOR TO 10/20/2020 (MEDICAID REPLACEMENT - HMO) Sharifa Carrillo [id number] 05/16/[address] [facility] PRIOR TO 10/20/2020 (MEDICAID REPLACEMENT - HMO) Sharifa Carrillo [id number] 01/23/[address] [facility] PRIOR TO 10/20/2020 (MEDICAID REPLACEMENT - HMO) Sharifa Carrillo [id number] 01/30/[address] [facility] ON OR AFTER 10/20/20 (MEDICAID REPLACEMENT - HMO) Tad Crarillo [id number] Notes Date Note Type Note Provider Name and Address Organization Details Recorded Time 08/11/2019 text/html Telephone visit due to Covid-19 precautions. Antianxiety meds not very helpful. Has been taking 1.5 hydrocodone relief every six hours to get relief. Caty Angel MD Attn: [address] [place], [address], [place] [facility] 08/11/2019 16:51:06 11/11/2019 text/html Telephone visit due to Covid-19 precautions. Current medications for anxiety ineffective. He had earlier declined a referral but wants one now. He recently sought out another physician for the above issue Caty Angel MD Attn: Accounting[address] [facility], [place], [address], [place] [facility] 11/11/2019 14:02:57 05/16/2020 text/html Telephone visit due to Covid-19 precautions. Wants anxiety addressed again. Could not make appointment scheduled 2019. Caty Angel MD Attn: Accounting[address] [facility], [place], [address], [place] [facility] 05/16/2020 11:00:14 01/23/2021 text/html No new complaint s. Has significant anxiety. Right fourth and fifth finger go numb for the past year Caty Angel MD Attn: Accounting[address] [facility], [place], [address], [place] [facility] 01/23/2021 16:04:37 01/30/2023 text/html Here for hospita l f/u for uncontrolled DM Started on Trulicity , lantus and Humalog Caty Angel MD Attn: Accounting[address] [facility], [place], [address], [place] [facility] 02/01/2023 10:00:10
--- OUTSIDE RECORDS SUMMARY | 2024-08-30 16:09 | XMS_ITS | Clinical Summary ---
Author Organization [facility] Address [facility] [place] [address] Care Team Providers Care Cab Worker Name Role Phone Unavailable Primary Care Provider Unavailabl e Social History Tobacco Use Types Packs/Day Years Used Date Smoking Tobacco: Never Assessed Sex and Gender Information Value Date Recorded Sex Assigned at Not on file Legal Sex Male 7:36 PM CDT Gender Identity Not on file Sexual Orientation Not on file Plan of Treatment Health Maintenance Due Date Last Done Comments Colorectal Cancer Screening Colonoscopy (10 Years) 1975 Annual Physical 1978 Hepatitis C 1993 DTaP, Tdap and Td Vaccines ( 1 - Tdap) 1994 Hepatitis B Vaccines (1 of 3 - 19+ 3-dose series) 1994 COVID-19 Vaccine ( - 2023-2 5 season) 2023 Meningococcal B Vaccine Aged Out No l onger eligible based on patient's age to complete this topic Meningococcal Vaccine Aged Out No stan marilee eligible based on patient's age to complete this topic Pneumococcal Vaccine: Pediat rics (0 to 5 Years) and At-Risk Patients (6 to 49 Years) Aged Out No longer eligible b ased on patient's age to complete this topic RSV Immunizations Under 20 Months Aged Out No longer eligible based on patient's age to complete this topic
--- OUTSIDE RECORDS SUMMARY | 2024-08-30 16:34 | XMS_ITS | Clinical Summary ---
Author Organization [facility] Address [facility] [place] [address] Care Team Providers Care Senior Project Engineer Name Role Phone Unavailable Primary Care Provider [...]
--- OUTSIDE RECORDS SUMMARY | 2024-08-30 16:34 | XMS_ITS | Clinical Summary ---
Author Organization [facility] Address [address] [place] [address] Care Team Providers Care Cognos Tm1 Developer Name Role Phone Gigi Angel MD Primary Care Provider [phone] Allergies No known active allergies Medications insulin [...] 08/09/2009 Surgical History Surgery Date Site/Laterality Comments [place] CHOLECYSTECTOMY Cholecystectomy - (Added by TW Conv) [...] often do you attend chur ch or islam services? 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 Testing performed by: [facility], [address] [place] [address]., [address] Blood 12/11/2022 2:48 AM CDT 12/11/2022 4:14 AM CDT us Mariangel Thompson MD LAB BLOOD ORDERABLES Final Res ult [facility] D[facility] [address] [facility] Department [place] [address] [phone] * COLONOSCOPY (12/09/2022 12:44 PM CDT) Anatomical Region Laterality Modality Other Narrative Procedure Note Roger Flores MD - 12/09/2022 12:44 PM CDT [facility] Patient Name: Sharifa Carrillo Procedure Date: 12/09/2022 12:44 PM Date of : 1975 Admit Type: Inpatient Age: 47 Gender: Male Attending MD: Roger Rodriguez M.D. Room: [facility] ENDOSCOPY ROOM 01 Note Status: Finalized [...] there are any questions, please contact the staff anesthetist. - Begin stool softeners and increase fiber intaketo relieve hemorrhoids. He has chronic constipation. Roger Flores M.D. Roger Flores M.D. 12/09/2022 1:54:49 PM . Number of Addenda: 0 Note Initiated On: 12/09/2022 12:44 PM Recognized by the [place] [employer] for promoting quality [...] and children were not included. (Diabetes Care 31:5858-1488, 2008). The eAG is not equivalent to a fasting glucose. Blood 12/07/2022 1:05 AM CDT 12/07/2022 1:09 AM CDT Man DENT LAB BLOOD ORDERABLES Megan hankins Result [facility] D[facility] [address] [facility] Department [place] [address] from Last 3 Months or Most Recently Relevant to Health Maintenance Insurance [facility] Advance Directives For more information, please contact: [phone] * Full Code (Latest Code Status on File) Date Activated Date Inactivated Comments 12/09/2022 9:53 AM 12/11/2022 5:47 PM * Full Code Date Activated Date Inactivated Comments 12/07/2022 7:36 AM 12/09/2022 9:53 AM Care Teams Cognos Tm1 Developer Relationship Specialty Start Date End Date Gigi Angel MD [address] [facility] [address] [place], [place] [address] PCP - General Gastroenterology 12/06/22
--- OUTSIDE RECORDS SUMMARY | 2024-08-30 16:34 | XMS_ITS | Referral Summary ---
Author Organization [facility] Address [address] [place] [address] Care Team Providers Care Health Care Marketing Manager Name Role Phone Gigi Angel MD Primary Care Provider [phone] Allergies No known active allergies Medications insulin [...] often do you attend chur ch or episcopal services? 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 Testing performed by: [facility], [address] [place] [address]., [address] Blood 12/11/2022 2:48 AM CDT 12/11/2022 4:14 AM CDT us Mariangel Thompson MD LAB BLOOD ORDERABLES [facility] [address] [facility] Department [place] [address] * COLONOSCOPY (12/09/2022 12:44 PM CDT) Anatomical Region Laterality Modality Other Narrative Procedure Note Roger Flores MD - 12/09/2022 12:44 PM CDT [facility] ENDOSCOPY Patient Name: Sharifa Carrillo Procedure Date: 12/09/2022 12:44 PM Date of : 1975 Admit Type: Inpatient Age: 47 Gender: Male Attending MD: Roger Rodriguez M.D. Room: [facility] ENDOSCOPY ROOM 01 Note Status: Finalized [...] there are any questions, please contact the it account manager. - Begin stool softeners and increase fiber [...] and children were not included. (Diabetes Care 31:9215-3521, 2008). The eAG is not equivalent to a fasting glucose. Blood 12/07/2022 1:05 AM CDT 12/07/2022 1:09 AM CDT Man DENT LAB BLOOD ORDERABLES Megan l Result IMT[facility]Z [address] [facility] Department [place] [address] from Last 3 Months or Most Recently Relevant to Health Maintenance Insurance [facility] Advance Directives For more information, please contact: [phone] * Full Code (Latest Code Status on File) Date Activated Date Inactivated Comments 12/09/2022 9:53 AM 12/11/2022 5:47 PM * Full Code Date Activated Date Inactivated Comments 12/07/2022 7:36 AM 12/09/2022 9:53 AM Care Teams Health Care Marketing Manager Relationship Specialty Start Date End Date Gigi Angel MD [address] [place] [address] PCP - General Gastroenterology 12/06/22
--- NOTE | 2024-08-30 16:36 | ED_ITS ---
HPI - General Adult General Chief complaint: Extremity Injury, Upper Stated complaint: Right hand injury Time Seen by Provider: 08/30/24 16:19 History of Present Illness HPI narrative: 49-year-old male present to the emergency department for evaluation for injury to a 5th finger on his right hand. Patient states he injured his right hand pumping gas at [employer] few days ago and the patient states he was having some increased abdominal pain and constipation after digging through the garbage can at [employer] Related Data Allergies Allergy/AdvReac Type Severity Reaction Status Date / Time No Known Allergies Allergy Unverified 08/30/24 16:07 Review of Systems Review of Systems: All systems reviewed & are unremarkable except as noted in HPI and below PMFSH Past Medical History Medical History (Updated 08/31/24 @ 00:00 by Rose Kennedy) Chronic back pain Anxiety Schizophrenia Bipolar 1 disorder Surgical History Surgical History (Updated 09/15/19 @ 09:48 by Neema [place], [place]) Hx of cholecystectomy Family History Family History (Updated 09/15/19 @ 10:27 by Neema [place], [place]) Father Diabetes mellitus Heart disease Hypertension Mother Breast cancer Sibling Hypertension Grandparent Carcinoma of colon Kidney disease Social History Social History (Updated 09/15/19 @ 12:18 by Neema [place], [place]) Smoking packs per day: 1 Smoking cigarettes per day: 20.0 Years smoked: 20 Smoking pack-years: 20.00 Smoking status: Former smoker Tobacco type: cigarettes Smoking end date: 02/20/19 Alcohol intake: never Substance use: never Living arrangements: with family Gender identity (if verbalized by the patient): Male Exam Narrative: APPEARANCE: Well appearing, no pain, no distress, well-nourished. HEAD: normocephalic, atraumatic. EYES: PERRLA/EOMI, conjunctivae clear. NOSE: Normal no drainage EARS:TMS clear with good light reflex. THROAT: Pharynx clear, no exudate. NECK: Supple. No adenopathy, no masses. RESPIRATORY: Airway patent, respirations nonlabored. Clear to auscultation bilaterally, no rales, rhonchi, wheezing. CARDIOVASCULAR: Regular rate and rhythm without murmurs rubs or gallops. ABDOMINAL: Soft, nontender, nondistended, normal bowel sounds MUSCULOSKELETAL: Tenderness over 5th metacarpal NEURO: Alert. Cranial nerves II through XII intact. Good gait. Good coordination SKIN: Warm, dry. Normal Color Course Vital Signs Vital signs: Vital Signs Temperature 97.9 F 08/30/24 16:08 Pulse Rate 92 08/30/24 16:08 Respiratory Rate 18 08/30/24 16:08 Blood Pressure 154/83 H 08/30/24 16:08 Pulse Oximetry 100 08/30/24 16:08 Oxygen Delivery Room Air 08/30/24 16:08 Temperature 97.5 F L 08/30/24 17:32 Pulse Rate 88 08/30/24 17:32 Respiratory Rate 15 08/30/24 17:32 Blood Pressure 163/97 H 08/30/24 17:32 Pulse Oximetry 96 08/30/24 17:32 Oxygen Delivery Room Air 08/30/24 16:08 Medical Decision Making MDM Narrative Medical decision making narrative: 49-year-old male presents emergency department for evaluation for right hand pain with no acute injury on x-ray. No evidence of bowel obstruction. Patient was updated the results of his workup. Patient was comfortable with the plan for discharge and follow-up. Differential Diagnosis Differential Diagnosis: Hand fracture, hand contusion, small bowel obstruction, constipation Vital Signs Vital Signs: Vital Signs Temperature 97.9 F 08/30/24 16:08 Pulse Rate 92 08/30/24 16:08 Respiratory Rate 18 08/30/24 16:08 Blood Pressure 154/83 H 08/30/24 16:08 Pulse Oximetry 100 08/30/24 16:08 Oxygen Delivery Room Air 08/30/24 16:08 Temperature 97.5 F L 08/30/24 17:32 Pulse Rate 88 08/30/24 17:32 Respiratory Rate 15 08/30/24 17:32 Blood Pressure 163/97 H 08/30/24 17:32 Pulse Oximetry 96 08/30/24 17:32 Oxygen Delivery Room Air 08/30/24 16:08 Discharge Plan Discharge Clinical Impression: Hand injury, Constipation Patient Disposition: Home Condition: Stable Instructions: Antibiotic Form, Constipation (DC), Hand Sprain (ED) Additional Instructions: Yayo wrap for comfort of the hand contusion. Stool softeners to help with con stipation. Have close follow-up with your primary care physician. Patient Language: Hungarian Prescriptions: No Action buspirone 10 mg tablet 10 mg PO TID Qty: 90 0RF sertraline [Zoloft] 50 mg tablet 50 mg PO DAILY Qty: 30 0RF Follow-up/Referrals: Ирина Franco MD [Primary Care Provider] -
[2024-08-30 17:32] VITALS: BP 163/97; PULSE 88; RESP 15; TEMP 36.4; O2SAT 96
== END 2024-08-30 17:34 | disposition home or self-care (01) ==
PROVIDERS: Emergency Provider Emergency Medicine; PCP Family Medicine
DX: S69.91XA Unspecified injury of right wrist, hand and finger(s), initial encounter (principal); K59.00 Constipation, unspecified; F41.9 Anxiety disorder, unspecified; F20.9 Schizophrenia, unspecified; F31.9 Bipolar disorder, unspecified; Z87.891 Personal history of nicotine dependence; Z90.49 Acquired absence of other specified parts of digestive tract; Z79.899 Other long term (current) drug therapy; X58.XXXA Exposure to other specified factors, initial encounter
CPT/HCPCS: 73130; 74019; 99284